=== PATIENT | male | born 1995 | race Hispanic/Latino ===

== ENCOUNTER 2018-03-07 17:37 | Emergency (ER) | payer SELFPAY ==
[2018-03-07] MEDS ORDERED: TETANUS/DIPHTHERIA TOXOID [ADULT] 0.5 ML VIAL IM ONE (17:49)
[2018-03-07] MEDS ORDERED: LIDOCAINE HCL 2% 20ML ONE (17:50)
== END 2018-03-07 18:40 | disposition home or self-care (01) ==
LOC: EDH 17:37
DX: S61.411A Laceration without foreign body of right hand, initial encounter (principal); I10 Essential (primary) hypertension; Z79.899 Other long term (current) drug therapy; W26.9XXA Contact with unspecified sharp object(s), initial encounter; Y93.89 Activity, other specified; Y92.098 Other place in other non-institutional residence as the place of occurrence of the external cause; Y99.8 Other external cause status
CPT/HCPCS: 12001; 90471; 90714; 99283; J3490

== ENCOUNTER 2023-08-17 18:28 | Inpatient (IN) | payer OTHER ==
[~2023-08-17] VITALS: Ht 177.8 cm; Wt 97.4 kg
[2023-08-17] MEDS ORDERED: PANTOPRAZOLE 40 MG/VIAL IVP ONE (20:30)
[2023-08-17] MEDS ORDERED: 0.9%NACL 1000ML 1,000 ML IV ONE (20:30)
[2023-08-17] MEDS ORDERED: KETOROLAC 15MG/ML VIAL (15MG/ML) IV ONE (20:30)
[2023-08-17] MEDS ORDERED: ONDANSETRON 4MG INJ IVP ONE (20:30)
[2023-08-17] MEDS ORDERED: ZOSYN 3.375GM +NS 50ML IV ONE (20:30)
[2023-08-17 20:57] LABS: BASOPHILS # (AUTO) 0.13 K/uL (0.00-0.20); BASOPHILS % (AUTO) 0.5 % (0.0-5.0); HEMATOCRIT 46.2 % (42-54); IMMATURE GRANULOCYTE ABSOLUTE 0.57 K/uL (0-1); LYMPHOCYTES # (AUTO) 0.9 K/uL (1.0-4.8); LYMPHOCYTES % (AUTO) 3.3 % (21.0-51.0); MEAN CORPUSCULAR HEMOGLOBIN 28.6 pg (27.0-33.0); MEAN CORPUSCULAR HGB CONC 35.1 g/dL (32.0-36.0); MEAN CORPUSCULAR VOLUME 81.5 fL (79-99); MONOCYTES # (AUTO) 1.4 K/uL (0.1-1.0); MONOCYTES % (AUTO) 5.5 % (3.0-13.0); NEUTROPHILS # (AUTO) 22.5 K/uL (1.8-7.7); NEUTROPHILS % (AUTO) 88.5 % (40.0-77.0); PLATELET COUNT (AUTO) 605 K/uL (130-400); RED BLOOD CELL COUNT(AUTO) 5.67 MIL/uL (4.50-6.20); RED CELL DISTRIBUTION WIDTH 11.8 % (11.0-15.5); WHITE BLOOD COUNT (AUTO) 25.5 K/uL (4.8-10.8)
[2023-08-17 21:19] LABS: ALBUMIN 3.4 g/dL (3.5-5.0); BILIRUBIN,TOTAL 0.9 mg/dL (0.2-1.0); POTASSIUM 3.1 mmol/L (3.5-5.1); TOTAL PROTEIN, SERUM 10.4 g/dL (6.0-8.3)
[2023-08-17] MEDS ORDERED: 0.9%NACL 1000ML 1,000 ML IV SCH (21:30)
[2023-08-17] MEDS ORDERED: 0.9%NACL 1000ML 2,190 ML IV ONE (21:30)
[2023-08-17] MEDS ORDERED: MAGNESIUM 2GM PREMIX 50ML 50 ML IV SCH (21:30)
[2023-08-17] MEDS ORDERED: INSULIN REGULAR, HUMAN 3ML 100 UNIT in 0.9%NACL 100ML 100 ML IV SCH ×2 (21:30)
[2023-08-17] MEDS ORDERED: D5W-1/2 NS/20MEQ KCL 1,000 ML IV SCH (21:30)
[2023-08-17] MEDS ORDERED: UNK BP MED (21:44)
[2023-08-17 22:12] LABS: ABG BASE EXCESS -16.6 mmol/L (-2.0-3.0); ABG HCO3 8.1 mmol/L (21.0-28.0); ABG OXYGEN SATURATION 98.2 % (95.0-99.0); ABG PCO2 19 mmHg (35-48); ABG PH 7.252 (7.350-7.450); PO2, ARTERIAL BG 127.8 mmHg (83.0-108.0); VENT MODE, BG RA (ROOM AIR)
[2023-08-17 22:27] LABS: RAPID GROUP A STREP negative (NEGATIVE)
[2023-08-17 22:35] LABS: COVID19 (SARS ANTIGEN RAPID) PRESUMPTIVE NEGATIVE (NEGATIVE)
[2023-08-17 22:39] LABS: AMPHET/METH SCREEN,URINE NEGATIVE (NEGATIVE); BARBITURATE SCREEN, URINE NEGATIVE (NEGATIVE); BENZODIAZEPINES SCREEN,URINE NEGATIVE (NEGATIVE); CANNABINOID SCREEN,URINE NEGATIVE (NEGATIVE); COCAINE SCREEN,URINE NEGATIVE (NEGATIVE); OPIATE SCREEN,URINE NEGATIVE (NEGATIVE); PHENCYCLIDINE SCREEN,URINE NEGATIVE (NEGATIVE)
[2023-08-17 22:41] LABS: INFLUENZA TYPE A Negative For Type A (NEGATIVE); INFLUENZA TYPE B Negative For Type B (NEGATIVE)
[2023-08-17] MEDS ORDERED: CLINDAMYCIN IVPB 600MG/50ML 50 ML IV SCH (23:30)
[2023-08-18] VITALS (117 sets, daily range): BP systolic 104–155; BP diastolic 42–96; PULSE 89–127; RESP 10–55; O2SAT 99–100
[2023-08-18] MEDS ORDERED: INSULIN GLARGINE 100 UNITS/ML 10 ML VIAL SQ STA ×2 (00:43→12:16)
[2023-08-18 00:51] LABS: CREATININE 1.6 mg/dL (0.5-1.5)
[2023-08-18 00:53] LABS: POTASSIUM 2.9 mmol/L (3.5-5.1)
[2023-08-18] MEDS ORDERED: NS-20 MEQ KCL 1000ML 1,000 ML IV ONE (01:11)
[2023-08-18] MEDS ORDERED: POTASSIUM CHLORIDE 10MEQ/100ML 100 ML IV STA (01:11)
[2023-08-18] MEDS ORDERED: RENAL DOSE IV STA (01:15)
[2023-08-18] MEDS ORDERED: MAGNESIUM 2GM PREMIX 50ML 50 ML IV PRN (01:30)
[2023-08-18] MEDS ORDERED: DOCUSATE SODIUM 100 MG CAP PO PRN (01:30)
[2023-08-18] MEDS ORDERED: HYDRALAZINE 20MG/ML VIAL IV PRN (01:30)
[2023-08-18] MEDS ORDERED: CLONIDINE HCL 0.1 MG TABLET PO PRN (01:30)
[2023-08-18] MEDS ORDERED: ONDANSETRON 4MG INJ IVP PRN (01:30)
[2023-08-18] MEDS ORDERED: SODIUM BICARB 8.4% 50ML SYRING 150 MEQ in DEXTROSE 5%-WATER 1,000 ML IV SCH (01:30)
[2023-08-18] MEDS ORDERED: ACETAMINOPHEN 650 MG SUPPOSITORY RC PRN (01:30)
[2023-08-18] MEDS ORDERED: KETOROLAC 15MG/ML VIAL (15MG/ML) IM PRN (01:30)
[2023-08-18] MEDS ORDERED: POTASSIUM CHLORIDE 10% ELIXIR 20 MEQ/15 ML UDCUP PO PRN (01:30)
[2023-08-18] MEDS ORDERED: ACETAMINOPHEN 325 MG TAB PO PRN (01:30)
[2023-08-18] MEDS ORDERED: ONDANSETRON 4MG INJ IV PRN (01:30)
[2023-08-18] MEDS ORDERED: ZOSYN 3.375GM +NS 50ML IV SCH (01:30)
[2023-08-18] MEDS ORDERED: POTASSIUM CHLORIDE 20MEQ/100ML 100 ML IV PRN (01:30)
[2023-08-18] MEDS ORDERED: TEMAZEPAM 15 MG CAPSULE PO PRN (01:30)
[2023-08-18] MEDS ORDERED: LACTULOSE 20 GM/30 ML UDCUP PO PRN (01:30)
[2023-08-18] MEDS ORDERED: VANCOMYCIN PROTOCOL PER PHARMACY IV SCH (01:30)
[2023-08-18] MEDS ORDERED: LABETALOL 20MG SYG IV PRN (01:30)
[2023-08-18] MEDS ORDERED: SODIUM BICARB 50MEQ 50ML VIAL 150 ML ONE (01:46)
[2023-08-18] MEDS: CEFAZOLIN SODIUM 2 GM VIAL IVPB SCH ×2 (01:53→09:07)
[2023-08-18] MEDS ORDERED: VANCOMYCIN 1G/250ML KIT 250 ML IV ONE ×2 (02:00→06:47)
[2023-08-18 04:30] LABS: BASOPHILS # (AUTO) 0.04 K/uL (0.00-0.20); BASOPHILS % (AUTO) 0.2 % (0.0-5.0); HEMATOCRIT 37.7 % (42-54); IMMATURE GRANULOCYTE ABSOLUTE 0.24 K/uL (0-1); LYMPHOCYTES # (AUTO) 0.9 K/uL (1.0-4.8); LYMPHOCYTES % (AUTO) 4.4 % (21.0-51.0); MEAN CORPUSCULAR HEMOGLOBIN 28.4 pg (27.0-33.0); MEAN CORPUSCULAR HGB CONC 36.1 g/dL (32.0-36.0); MEAN CORPUSCULAR VOLUME 78.7 fL (79-99); MONOCYTES # (AUTO) 1.8 K/uL (0.1-1.0); MONOCYTES % (AUTO) 8.6 % (3.0-13.0); NEUTROPHILS # (AUTO) 17.9 K/uL (1.8-7.7); NEUTROPHILS % (AUTO) 85.7 % (40.0-77.0); PLATELET COUNT (AUTO) 439 K/uL (130-400); RED BLOOD CELL COUNT(AUTO) 4.79 MIL/uL (4.50-6.20); RED CELL DISTRIBUTION WIDTH 11.6 % (11.0-15.5); WHITE BLOOD COUNT (AUTO) 20.9 K/uL (4.8-10.8)
[2023-08-18 04:48] LABS: APPEARANCE,URINE CLEAR (CLEAR); BILIRUBIN,URINE NEGATIVE (NEGATIVE); COLOR,URINE LIGHT-YELLOW (YELLOW); GLUCOSE, URINE (UA) >=1000 mg/dL (NEGATIVE); KETONES,URINE 150 mg/dL (NEGATIVE); LEUKOCYTE ESTERASE ,URINE NEGATIVE Leu/uL (NEGATIVE); NITRATE,URINE NEGATIVE (NEGATIVE); OCCULT BLOOD,URINE NEGATIVE (NEGATIVE); PROTEIN,URINE 30 mg/dL (NEGATIVE); UROBILINOGEN,URINE 0.2 mg/dL (0.2-1.0)
[2023-08-18 04:52] LABS: ADD UA MICROSCOPIC YES
[2023-08-18 04:58] LABS: MUCUS,URINE RARE LPF (None Seen); SQUAMOUS EPITHELIAL CELL,UR RARE /HPF (0-2); WBC,URINE 0-1 /HPF (0-1)
[2023-08-18 05:04] LABS: ALBUMIN 2.6 g/dL (3.5-5.0); BILIRUBIN,TOTAL 0.7 mg/dL (0.2-1.0); CREATININE 1.4 mg/dL (0.5-1.5); MAGNESIUM 2.5 mg/dL (1.80-2.40); PHOSPHORUS 2.4 mg/dL (2.5-4.9); THYROID STIMULATING HORMONE 0.52 uIU/mL (0.36-3.74); TOTAL PROTEIN, SERUM 8.3 g/dL (6.0-8.3)
[2023-08-18 05:10] LABS: POTASSIUM 2.6 mmol/L (3.5-5.1)
[2023-08-18 05:41] LABS: ABG OXYGEN SATURATION 95.5 % (95.0-99.0); BASE EXCESS,VENOUS BLOOD GAS -5.4 (-2.0-3.0); DEVICE COMMENT ROOM AIR; HCO3,VENOUS BLOOD GAS 17.5 (21.0-28.0); PCO2,VENOUS BLOOD GAS 28 (32-45); PO2,VENOUS BLOOD GAS 76.3 mmHg (35.0-45.0)
[2023-08-18] MEDS: KCL 20 MEQ ERTAB PO SCH ×4 (07:00→21:00)
[2023-08-18] MEDS: ENOXAPARIN SODIUM 30 MG/0.3 ML SQ SCH (07:51)
[2023-08-18] MEDS: FAMOTIDINE 20MG VIAL IV SCH ×2 (07:57→20:57)
[2023-08-18] MEDS: POTASSIUM CHLORIDE 10MEQ/100ML 100 ML IV PRN ×5 (07:57→12:24)
[2023-08-18] MEDS ORDERED: PHARMACY COMMUNICATION MISC SCH (08:30)
[2023-08-18] MEDS ORDERED: LACTATED RINGERS 1000ML 1,000 ML IV ONE (09:30)
[2023-08-18] MEDS ORDERED: METO25TA6 PO (09:57)
[2023-08-18 10:20] LABS: INR 1.02 (0.85-1.15); PROTHROMBIN TIME 11.8 SEC (9.6-11.6)
[2023-08-18 10:22] LABS: PARTIAL THROMBOPLASTIN TIME 29.7 SEC (26.3-35.5)
[2023-08-18 10:23] LABS: POTASSIUM 2.9 mmol/L (3.5-5.1)
[2023-08-18 10:42] LABS: CREATININE 1.2 mg/dL (0.5-1.5)
[2023-08-18] MEDS ORDERED: INSULIN HUMULIN R 100 UNIT/ML 3ML SQ STA (12:16)
[2023-08-18] MEDS: ZOSYN 3.375GM +NS 50ML IV SCH ×2 (12:23→20:57)
[2023-08-18] MEDS: POTASSIUM CHLORIDE 20MEQ/100ML 100 ML IV PRN ×4 (13:17→22:42)
[2023-08-18 13:19] LABS: CREATININE 1.2 mg/dL (0.5-1.5); POTASSIUM 3.3 mmol/L (3.5-5.1)
[2023-08-18] MEDS: NS-20 MEQ KCL 1000ML 1,000 ML IV SCH ×3 (13:38→21:05)
[2023-08-18] MEDS: D5W-1/2 NS/20MEQ KCL 1,000 ML IV SCH ×2 (15:40→20:57)
[2023-08-18] MEDS ORDERED: PHARMACY COMMUNICATION MISC STA (15:46)
[2023-08-18] MEDS ORDERED: INSULIN REGULAR IV SCH ×2 (16:30)
[2023-08-18] MEDS ORDERED: D5W-1/2 NS/20MEQ KCL 1,000 ML IV SCH (16:30)
[2023-08-18] MEDS ORDERED: MAGNESIUM 2GM PREMIX 50ML 50 ML IV SCH (16:30)
[2023-08-18] MEDS ORDERED: POTASSIUM CHLORIDE 10MEQ/100ML 100 ML IV PRN (16:30)
[2023-08-18] MEDS ORDERED: [UNRECOGNIZED DRUG - OTHER] IV SCH ×2 (16:30)
[2023-08-18] MEDS ORDERED: HUMAN IV SCH ×2 (16:30)
[2023-08-18] MEDS ORDERED: 0.9%NACL 1000ML 1,000 ML IV SCH (16:30)
[2023-08-18 16:46] LABS: CREATININE 1.2 mg/dL (0.5-1.5); POTASSIUM 3.2 mmol/L (3.5-5.1)
[2023-08-18] MEDS ORDERED: LIDOCAINE PF 100MG/5ML (2%) SYRINGE 5ML ONE (19:39)
[2023-08-18] MEDS ORDERED: SUCCINYLCHOLINE 200MG/10ML SYR ONE (19:39)
[2023-08-18] MEDS ORDERED: PROPOFOL 10 MG/ML 20ML VIAL IV ONE (19:40)
[2023-08-18] MEDS ORDERED: MIDAZOLAM HCL 1 MG/ML 2ML VIAL ONE (19:40)
[2023-08-18] MEDS ORDERED: FENTANYL CITRATE PF 50 MCG/1 ML 2ML VIAL ONE (19:40)
[2023-08-18] MEDS ORDERED: ROCURONIUM 10MG/1ML SYR 10 MG/ML ML ONE (19:47)
[2023-08-18] MEDS ORDERED: LIDOCAINE HCL 4% LTA SOL 4 ML VIAL ONE (19:57)
[2023-08-18] MEDS ORDERED: GLYCOPYRROLATE 1 MG/5 ML SYRINGE ONE (20:29)
[2023-08-18] MEDS ORDERED: NEOSTIGMINE 5MG/5ML SYR IV ONE (20:29)
[2023-08-18] MEDS ORDERED: ONDANSETRON 4MG INJ ONE (20:29)
[2023-08-18] MEDS: VANCOMYCIN 1.25 GM/250 ML BAG 250 ML IV SCH (20:57)
[2023-08-18] MEDS ORDERED: IPRATROPIUM/ALBUTEROL SULFATE 3 ML SOLUTION IH PRN (21:00)
[2023-08-18 21:27] LABS: CREATININE 1.1 mg/dL (0.5-1.5); POTASSIUM 3.4 mmol/L (3.5-5.1)
[2023-08-18] MEDS: INSULIN GLARGINE 100 UNITS/ML 10 ML VIAL SQ SCH (21:49)
[2023-08-19] VITALS (78 sets, daily range): BP systolic 104–153; BP diastolic 61–92; PULSE 80–110; RESP 7–27; O2SAT 94–99
[2023-08-19 01:30] LABS: POTASSIUM 3.5 mmol/L (3.5-5.1)
[2023-08-19] MEDS: POTASSIUM CHLORIDE 20MEQ/100ML 100 ML IV PRN ×3 (01:39→10:22)
[2023-08-19] MEDS: D5W-1/2 NS/20MEQ KCL 1,000 ML IV SCH ×2 (02:32→09:22)
[2023-08-19] MEDS: ZOSYN 3.375GM +NS 50ML IV SCH ×3 (04:49→21:19)
[2023-08-19 05:06] LABS: BASOPHILS # (AUTO) 0.04 K/uL (0.00-0.20); BASOPHILS % (AUTO) 0.3 % (0.0-5.0); EOSINOPHILS # (AUTO) 0.01 K/uL (0.00-0.70); EOSINOPHILS % (AUTO) 0.1 % (0.0-8.0); HEMATOCRIT 33.8 % (42-54); IMMATURE GRANULOCYTE ABSOLUTE 0.14 K/uL (0-1); LYMPHOCYTES # (AUTO) 1.2 K/uL (1.0-4.8); LYMPHOCYTES % (AUTO) 9.5 % (21.0-51.0); MEAN CORPUSCULAR HGB CONC 35.2 g/dL (32.0-36.0); MEAN CORPUSCULAR VOLUME 82.4 fL (79-99); MONOCYTES # (AUTO) 1.2 K/uL (0.1-1.0); MONOCYTES % (AUTO) 9.1 % (3.0-13.0); NEUTROPHILS # (AUTO) 10.2 K/uL (1.8-7.7); NEUTROPHILS % (AUTO) 79.9 % (40.0-77.0); PLATELET COUNT (AUTO) 337 K/uL (130-400); RED CELL DISTRIBUTION WIDTH 11.9 % (11.0-15.5); WHITE BLOOD COUNT (AUTO) 12.8 K/uL (4.8-10.8)
[2023-08-19 05:17] LABS: CREATININE 0.9 mg/dL (0.5-1.5); MAGNESIUM 2.3 mg/dL (1.80-2.40); POTASSIUM 3.5 mmol/L (3.5-5.1)
[2023-08-19] MEDS: INSULIN GLARGINE 100 UNITS/ML 10 ML VIAL SQ SCH ×2 (06:09→21:32)
[2023-08-19] MEDS: VANCOMYCIN 1.25 GM/250 ML BAG 250 ML IV SCH (08:07)
[2023-08-19] MEDS: NS-20 MEQ KCL 1000ML 1,000 ML IV SCH (08:08)
[2023-08-19] MEDS: FAMOTIDINE 20MG VIAL IV SCH ×2 (08:08→21:18)
[2023-08-19] MEDS: METOPROLOL TARTRATE 25 MG TAB PO SCH (08:08)
[2023-08-19] MEDS: ENOXAPARIN SODIUM 30 MG/0.3 ML SQ SCH (08:08)
[2023-08-19 09:34] LABS: CREATININE 0.9 mg/dL (0.5-1.5); POTASSIUM 3.5 mmol/L (3.5-5.1)
[2023-08-19] MEDS: INSULIN HUMULIN R 100 UNIT/ML 3ML SQ SCH ×3 (10:35→21:00)
[2023-08-19 18:06] LABS: POTASSIUM 3.3 mmol/L (3.5-5.1)
[2023-08-19 20:44] LABS: CREATININE 0.8 mg/dL (0.5-1.5); POTASSIUM 3.3 mmol/L (3.5-5.1)
[2023-08-19] MEDS: KCL 20 MEQ ERTAB PO PRN (21:43)
[2023-08-20] VITALS (11 sets, daily range): BP systolic 124–158; BP diastolic 66–96; PULSE 86–95; RESP 14–22; O2SAT 96–99
[2023-08-20] MEDS: KCL 20 MEQ ERTAB PO PRN (02:08)
[2023-08-20] MEDS: ZOSYN 3.375GM +NS 50ML IV SCH ×3 (04:45→20:45)
[2023-08-20] MEDS: INSULIN HUMULIN R 100 UNIT/ML 3ML SQ SCH ×4 (06:41→20:46)
[2023-08-20] MEDS: ENOXAPARIN SODIUM 30 MG/0.3 ML SQ SCH (08:37)
[2023-08-20] MEDS: METOPROLOL TARTRATE 25 MG TAB PO SCH (08:37)
[2023-08-20] MEDS: FAMOTIDINE 20MG VIAL IV SCH ×2 (08:38→20:44)
[2023-08-20] MEDS: INSULIN GLARGINE 100 UNITS/ML 10 ML VIAL SQ SCH ×2 (08:41→20:47)
[2023-08-20 11:53] LABS: CREATININE 0.6 mg/dL (0.5-1.5); POTASSIUM 3.2 mmol/L (3.5-5.1)
[2023-08-20] MEDS ORDERED: ZOSYN 3.375GM +NS 50ML IV SCH (23:30)
[2023-08-21] VITALS (8 sets, daily range): BP systolic 129–147; BP diastolic 83–99; PULSE 75–99; RESP 16–19; O2SAT 96–98
[2023-08-21] MEDS: ZOSYN 3.375GM +NS 50ML IV SCH ×3 (01:01→16:37)
[2023-08-21 04:21] LABS: BASOPHILS # (AUTO) 0.09 K/uL (0.00-0.20); EOSINOPHILS # (AUTO) 0.09 K/uL (0.00-0.70); HEMATOCRIT 34.5 % (42-54); IMMATURE GRANULOCYTE ABSOLUTE 0.47 K/uL (0-1); LYMPHOCYTES # (AUTO) 2.5 K/uL (1.0-4.8); MEAN CORPUSCULAR HEMOGLOBIN 28.6 pg (27.0-33.0); MEAN CORPUSCULAR HGB CONC 33.6 g/dL (32.0-36.0); MEAN CORPUSCULAR VOLUME 85.2 fL (79-99); MONOCYTES % (AUTO) 11.1 % (3.0-13.0); NEUTROPHILS # (AUTO) 4.8 K/uL (1.8-7.7); NEUTROPHILS % (AUTO) 53.7 % (40.0-77.0); PLATELET COUNT (AUTO) 330 K/uL (130-400); RED BLOOD CELL COUNT(AUTO) 4.05 MIL/uL (4.50-6.20); RED CELL DISTRIBUTION WIDTH 11.7 % (11.0-15.5)
[2023-08-21 04:29] LABS: CREATININE 0.6 mg/dL (0.5-1.5); POTASSIUM 3.2 mmol/L (3.5-5.1)
[2023-08-21] MEDS: INSULIN GLARGINE 100 UNITS/ML 10 ML VIAL SQ SCH ×2 (06:14→23:32)
[2023-08-21] MEDS: INSULIN HUMULIN R 100 UNIT/ML 3ML SQ SCH ×4 (06:15→21:00)
[2023-08-21] MEDS: FAMOTIDINE 20MG VIAL IV SCH ×2 (09:41→21:23)
[2023-08-21] MEDS: METOPROLOL TARTRATE 25 MG TAB PO SCH (09:41)
[2023-08-21] MEDS: ENOXAPARIN SODIUM 30 MG/0.3 ML SQ SCH (09:42)
[2023-08-21] MEDS: KCL 20 MEQ ERTAB PO PRN ×3 (09:42→13:59)
[2023-08-22] VITALS: BP 145/91; PULSE 81; RESP 16
[2023-08-22] MEDS: ZOSYN 3.375GM +NS 50ML IV SCH ×2 (00:44→09:27)
[2023-08-22 04:00] VITALS: BP 150/94; PULSE 73; RESP 16
[2023-08-22] MEDS: INSULIN HUMULIN R 100 UNIT/ML 3ML SQ SCH ×2 (06:21→12:08)
[2023-08-22 07:35] LABS: BASOPHILS # (AUTO) 0.08 K/uL (0.00-0.20); BASOPHILS % (AUTO) 0.9 % (0.0-5.0); EOSINOPHILS % (AUTO) 2.2 % (0.0-8.0); HEMATOCRIT 33.5 % (42-54); LYMPHOCYTES # (AUTO) 2.7 K/uL (1.0-4.8); LYMPHOCYTES % (AUTO) 28.9 % (21.0-51.0); MEAN CORPUSCULAR HEMOGLOBIN 28.1 pg (27.0-33.0); MEAN CORPUSCULAR VOLUME 82.5 fL (79-99); MONOCYTES % (AUTO) 10.7 % (3.0-13.0); NEUTROPHILS # (AUTO) 4.9 K/uL (1.8-7.7); PLATELET COUNT (AUTO) 350 K/uL (130-400); RED BLOOD CELL COUNT(AUTO) 4.06 MIL/uL (4.50-6.20); RED CELL DISTRIBUTION WIDTH 11.5 % (11.0-15.5); WHITE BLOOD COUNT (AUTO) 9.3 K/uL (4.8-10.8)
[2023-08-22 07:48] VITALS: PULSE 72; RESP 19; O2SAT 97
[2023-08-22 07:51] LABS: ALBUMIN 2.3 g/dL (3.5-5.0); BILIRUBIN,TOTAL 0.4 mg/dL (0.2-1.0); CREATININE 0.6 mg/dL (0.5-1.5); POTASSIUM 3.6 mmol/L (3.5-5.1); TOTAL PROTEIN, SERUM 7.7 g/dL (6.0-8.3)
[2023-08-22] MEDS: INSULIN GLARGINE 100 UNITS/ML 10 ML VIAL SQ SCH (07:58)
[2023-08-22 08:00] VITALS: BP 148/96; PULSE 72; RESP 16; O2SAT 99
[2023-08-22] MEDS: FAMOTIDINE 20MG VIAL IV SCH (09:27)
[2023-08-22] MEDS: KCL 20 MEQ ERTAB PO PRN (09:28)
[2023-08-22] MEDS: METOPROLOL TARTRATE 25 MG TAB PO SCH (09:28)
[2023-08-22] MEDS: ENOXAPARIN SODIUM 30 MG/0.3 ML SQ SCH (09:29)
[2023-08-22 11:00] VITALS: BP 136/89; PULSE 105; RESP 16
[2023-08-22] MEDS ORDERED: AMOX/CLAV 875/125MG TAB PO SCH (11:30)
[2023-08-22] MEDS ORDERED: AMOX1TAB16 PO (13:15)
== END 2023-08-22 14:50 | disposition home or self-care (01) | DRG 853 ==
LOC: EDH 18:28 → EDHIP 18:29 → UNDOADMIN 08-18 01:23 → 2CH 08-18 02:13 → 4CH 08-19 17:45
PROVIDERS: ADMIT Internal Medicine; ATTEND Internal Medicine
PROC: 0H99XZZ Drainage of Perineum Skin, External Approach (ICD-10-PCS; principal; 2023-08-18 19:42)
DX: A41.9 Sepsis, unspecified organism (principal); E11.10 Type 2 diabetes mellitus with ketoacidosis without coma; L02.214 Cutaneous abscess of groin; L02.31 Cutaneous abscess of buttock; Z20.822 Contact with and (suspected) exposure to COVID-19; R65.20 Severe sepsis without septic shock; E86.0 Dehydration; N28.9 Disorder of kidney and ureter, unspecified; D75.839 Thrombocytosis, unspecified; E87.6 Hypokalemia; E86.1 Hypovolemia; I10 Essential (primary) hypertension; E66.3 Overweight
CPT/HCPCS: 36415; 36600; 74176; 80048; 80053; 80202; 80305; 81001; 82306; 82330; 82435; 82803; 82947; 82948; 83036; 83605; 83690; 83735; 84100; 84132; 84145; 84295; 84443; 85025; 85610; 85730; 86140; 86341; 87040; 87070; 87076; 87205; 87426; 87804; 87880; 94664; 99291; A6266; A6407; C9113; G0378; J0330; J1650; J1815; J1885; J2001; J2250; J2405; J2543; J2704; J2710; J3010; J3370; J3480; J3490; J7030; J7070; 3370; A4452; C1729; J0690